=== PATIENT | male | born 1970 | race Caucasian/White ===

== ENCOUNTER 2017-05-30 10:41 | Day surgery (SDC) | payer OTHER ==
[2017-05-30] MEDS ORDERED: LIDOCAINE 2% 100 MG/5 ML UJET TP ONE (11:50)
== END 2017-05-30 13:20 | disposition home or self-care (01) ==
LOC: MDS 10:41
PROVIDERS: ATTEND Internal Medicine Gastroenterology
DX: K64.8 Other hemorrhoids (principal); E66.3 Overweight; E78.5 Hyperlipidemia, unspecified; Z79.899 Other long term (current) drug therapy; F17.210 Nicotine dependence, cigarettes, uncomplicated; Z68.26 Body mass index [BMI] 26.0-26.9, adult
CPT/HCPCS: 45398; J7030

== ENCOUNTER 2019-01-22 05:53 | Day surgery (SDC) | payer OTHER ==
[~2019-01-22] VITALS: Ht 157.5 cm; Wt 62.6 kg
[2019-01-22] MEDS ORDERED: fentaNYL 0.05 MG/ML VIAL ONE (07:47)
[2019-01-22] MEDS ORDERED: LIDOCAINE 2% 100 MG/5 ML UJET TP ONE (07:47)
== END 2019-01-22 08:47 | disposition home or self-care (01) ==
LOC: MDS 05:53 → MTU 06:05 → MDS 08:47
PROVIDERS: ATTEND Internal Medicine Gastroenterology
DX: K64.8 Other hemorrhoids (principal); E78.5 Hyperlipidemia, unspecified; F17.210 Nicotine dependence, cigarettes, uncomplicated; E66.3 Overweight; Z79.899 Other long term (current) drug therapy; Z68.25 Body mass index [BMI] 25.0-25.9, adult; Z98.890 Other specified postprocedural states
CPT/HCPCS: 45350; J3010